=== PATIENT | female | born 1950 | race Hispanic/Latino ===

== ENCOUNTER 2024-03-12 17:36 | Emergency (ER) | payer OTHER ==
[~2024-03-12] VITALS: Ht 147.3 cm; Wt 54.4 kg
[2024-03-12] MEDS: DEXAMETHASONE 4 MG TAB PO STA (21:45)
[2024-03-12] MEDS: ACETAMINOPHEN 325 MG TAB PO ONE (21:46)
[2024-03-12] MEDS: LIDOCAINE 4% PATCH TP STA (21:46)
[2024-03-12] MEDS ORDERED: CYCLOBENZAPRINE5 MG PO (21:48)
[2024-03-12] MEDS ORDERED: NAPROXEN250 MG PO (21:49)
[2024-03-12] MEDS: KETOROLAC TROMETHAMINE 30 MG/ML VIAL IM STA (21:49)
[2024-03-12 21:56] VITALS: PULSE 68; RESP 15; TEMP 97.9; O2SAT 100
== END 2024-03-12 21:56 | disposition home or self-care (01) ==
LOC: ER 17:40
DX: M54.50 Low back pain, unspecified (principal)
CPT/HCPCS: 72110; 72220; 99283; J1885; J8540